=== PATIENT | female | born 1950 | race Caucasian/White ===

== ENCOUNTER → 2016-11-07 | Outpatient (CLI) | payer BC ==
[~2016-11-07] MED LIST: BENA1TAB12 PO; BENA1TAB3 PO; CA C1TAB75 PO; NF-ESOM40C PO; [UNRECOGNIZED DRUG - CODE] PO; [UNRECOGNIZED DRUG - OTHER]
--- NOTE | 2016-11-07 09:30 | Diagnostic Imaging Report ---
Bilateral screening mammogram The current study was also evaluated with a Computer Aided Detection (CAD) system. Indication: Screening. No current complaints stated on the questionnaire. COMPARISON: 11/03/15 FINDINGS: The breasts are composed of heterogeneously dense parenchyma which may decrease mammographic sensitivity. Bilateral scattered benign-appearing calcifications are seen similar to prior studies. No developing mass or new suspicious cluster of calcification noted. Allowing for technique and positional differences, no suspicious change is seen. IMPRESSION: Dense breasts with no definite change. ACR BI-RADS Category 2: Benign findings. Result letter will be mailed to the patient. Note: At least 10% of breast cancer is not imaged by mammography. Dictated by: Dictated on workstation # [id number]
== END ==
LOC: RAD 07:18
PROVIDERS: ATTEND Registered Nurse
DX: Z12.31 Encounter for screening mammogram for malignant neoplasm of breast (principal)
CPT/HCPCS: 77067

== ENCOUNTER → 2018-12-05 | Outpatient (CLI) | payer MEDICARE, OTHER ==
--- NOTE | 2018-12-05 13:42 | Diagnostic Imaging Report ---
Indication: Routine screening. Comparison is made to prior mammogram from 11/12/2017 and 11/07/2016. 2-D and 3-D bilateral screening mammography was performed with CAD. Both breasts are heterogeneously dense, limiting the sensitivity of mammography. Numerous microcalcifications throughout both breasts are again noted and appear similar to prior. Benign nodule inferior right breast appears stable. No new mass is detected. Axillae are unremarkable. Impression: BI-RADS category 2 No mammographic features suspicious for malignancy are identified. ACR BI-RADS Category 2: Benign findings. Result letter will be mailed to the patient. Note: At least 10% of breast cancer is not imaged by mammography. Dictated by: Dictated on workstation # [id number]
== END ==
LOC: RAD 07:19
DX: Z12.31 Encounter for screening mammogram for malignant neoplasm of breast (principal)
CPT/HCPCS: 77067

== ENCOUNTER → 2019-12-09 | Outpatient (CLI) | payer MEDICARE, OTHER ==
--- NOTE | 2019-12-09 12:46 | Diagnostic Imaging Report ---
INDICATION: Routine screening. COMPARISON: 12/05/2018 and 11/12/2017. TECHNIQUE: 2D and 3D bilateral screening mammography was performed with CAD. FINDINGS: Both breasts are heterogeneously dense, limiting the sensitivity of mammography. Innumerable microcalcifications are again noted throughout both breasts, limiting evaluation. The circumscribed nodule in the lower right breast is stable. The axillae are unremarkable. IMPRESSION: No mammographic features suspicious for malignancy are identified. ACR BI-RADS Category 2: Benign findings. Result letter will be mailed to the patient. Note: At least 10% of breast cancer is not imaged by mammography. Dictated by: Dictated on workstation # [id number]
== END ==
LOC: RAD 08:32
PROVIDERS: ATTEND Nurse Practitioner
DX: Z12.31 Encounter for screening mammogram for malignant neoplasm of breast (principal)
CPT/HCPCS: 77063; 77067

== ENCOUNTER → 2020-12-09 | Outpatient (CLI) | payer MEDICARE, OTHER ==
--- NOTE | 2020-12-09 14:10 | Diagnostic Imaging Report ---
INDICATION: 2-D and 3-D digital screening with CAD. Compared with exam 11/2019, 11/2018 and 10/2017 FINDINGS: Scattered benign type calcifications are unchanged. There is a heterogeneously dense parenchymal pattern which can limit mammographic sensitivity. No appreciable mass, architectural distortion or spiculated lesion. Skin, nipples and axillae within normal limits. IMPRESSION: Stable benign findings BI-RADS Category 2 ACR BI-RADS Category 2: Benign findings. Result letter will be mailed to the patient. Note: At least 10% of breast cancer is not imaged by mammography. Dictated by: Dictated on workstation # [id number]
== END ==
LOC: RAD 07:45
PROVIDERS: ATTEND Family Medicine
DX: Z12.31 Encounter for screening mammogram for malignant neoplasm of breast (principal)
CPT/HCPCS: 77063; 77067

== ENCOUNTER → 2021-12-12 | Outpatient (CLI) | payer MEDICARE, OTHER ==
--- NOTE | 2021-12-13 10:13 | Diagnostic Imaging Report ---
Indication: Bilateral digital 3-D screening with CAD. CAD is utilized. The current study was also evaluated with a Computer Aided Detection (CAD) system. COMPARISON: 11/2020, 11/2019 and 11/2018 FINDINGS: Density 3. Scattered benign calcifications bilaterally unchanged. No breast mass, spiculated lesion, architectural distortion or suspicious calcifications. There are no findings to suggest malignancy. There has been no change in the appearance of the breasts. IMPRESSION: BI-RADS Category 2 ACR BI-RADS Category 2: Benign findings. Result letter will be mailed to the patient. Note: At least 10% of breast cancer is not imaged by mammography. Dictated by: Dictated on workstation # [id number]
== END ==
LOC: RAD 10:29
PROVIDERS: ATTEND Nurse Practitioner
DX: Z12.31 Encounter for screening mammogram for malignant neoplasm of breast (principal)
CPT/HCPCS: 77063; 77067

== ENCOUNTER 2022-04-18 05:44 | Outpatient (CLI) | payer MEDICARE, OTHER ==
[~2022-04-18] VITALS: Ht 167.7 cm; Wt 84.1 kg
[2022-04-18] MEDS ORDERED: BENA40TA84 PO (12:17)
[2022-04-18] MEDS ORDERED: ATOR20TA66 PO (12:17)
[2022-04-18] MEDS ORDERED: MV-M1TAB20 PO (12:17)
[2022-04-18] MEDS ORDERED: CARV12.53 PO (12:17)
== END 2022-04-18 12:25 | disposition home or self-care (01) ==
LOC: PREOP 05:44
PROVIDERS: ATTEND Specialist
DX: Z01.818 Encounter for other preprocedural examination (principal)

== ENCOUNTER 2022-04-21 08:03 | Day surgery (SDC) | payer MEDICARE, OTHER ==
[~2022-04-21] VITALS: Ht 167.7 cm; Wt 84.1 kg
[~2022-04-21 08:03] MED LIST changes: +ATOR20TA66 PO; +BENA40TA84 PO; +CARV12.53 PO; +MV-M1TAB20 PO
[2022-04-21 08:15] VITALS: BP 172/81
[2022-04-21] MEDS ORDERED: MOXIFLOXACIN OPHTH SOLN 5 MG/ML 0.3 ML SYRINGE OP ONE (08:30)
[2022-04-21] MEDS ORDERED: POVIDONE (BETADINE) OPHTH SOLN 5% 30 ML OP ONE (08:30)
[2022-04-21] MEDS ORDERED: TIMOLOL 0.5% (CATARACTS) 0.3 ML BTL OU PRN (08:30)
[2022-04-21] MEDS: TETRACAINE 0.5% OPHTH SOLN 4 ML BTL (SINGLE DOSE ONLY) OU PRN ×4 (08:35→08:45)
[2022-04-21] MEDS: TROPICAMIDE 1% OPH SOLN (MYDRIACYL) 15 ML BTL OP SCH ×3 (08:39→08:46)
[2022-04-21] MEDS: PHENYLEPHRINE 10% OPHTH (NEO-SYN) 5 ML BTL OU SCH ×3 (08:40→08:46)
[2022-04-21] MEDS ORDERED: MIDAZOLAM 2 MG/2 ML (VERSED) VIAL ONE (08:46)
--- NOTE | 2022-04-21 08:54 | Ophthalmologist Pre-Op Note ---
Pre-Operative Progress Note H&P Reviewed The H&P was reviewed, patient examined and no changes noted. Date H&P Reviewed: Apr 21, 2022 Time H&P Reviewed: 08:54 Pre-Op Dx Cataract, Right Eye DINA CALI MD Apr 21, 2022 08:54
--- NOTE | 2022-04-21 09:15 | Ophthalmology Operative Report ---
Cataract removal/placement IOL PREOPERATIVE DIAGNOSIS: Cataract Right Eye POSTOPERATIVE DIAGNOSIS: Cataract Right Eye PROCEDURE: Cataract removal and placement of posterior chamber implant, right eye SURGEON: Jose Cali ANESTHESIA: Topical with sedation COMPLICATIONS: None ESTIMATED BLOOD LOSS: Minimal DESCRIPTION OF PROCEDURE: After proper informed consent was obtained, the patient, a 72 female, was taken to the Operating Room and the right eye was anesthetized with tetracaine. The right eye was then prepped and draped in the usual manner. A wire lid speculum was placed. A paracentesis was made at the left hand position. Preservative free lidocaine was injected into the anterior chamber followed by viscoelastic. A clear corneal incision was made in the temporal position. A capsulorrhexis was preformed and the central nuclear and cortical material were removed. The posterior capsule was polished and Jaycob 19.5 AU00T0 IOL was placed into the capsular bag. The residual viscoelastic was aspirated and balanced saline solution was injected into the anterior chamber. Moxifloxacin was injected into the anterior chamber. The wound was checked and found to be water tight. The patient tolerated the procedure well without complications. JOSE CALI MD Apr 21, 2022 09:15
[2022-04-21 09:20] VITALS: BP 135/76
[2022-04-21] MEDS ORDERED: acetaZOLAMIDE ER 500 MG CAP (DIAMOX SEQUELS) PO ONE (12:00)
--- NOTE | 2022-04-21 12:51 | Anesthesia-General Post-Op ---
MAC Patient Condition Mental Status/LOC: Same as Preop Cardiovascular: Satisfactory Nausea/Vomiting: Absent Respiratory: Satisfactory Pain: Controlled Complications: Absent Post Op Complications Complications None Follow Up Care/Instructions Patient Instructions None needed. Anesthesiology Discharge Order Discharge Order Patient is doing well, no complaints, stable vital signs, no apparent adverse anesthesia problems. No complications reported per nursing. FELICITY NAM CRNA Apr 21, 2022 12:50
== END 2022-04-21 09:22 ==
LOC: SDC 08:03
PROVIDERS: ATTEND Specialist
DX: H25.11 Age-related nuclear cataract, right eye (principal); Z87.891 Personal history of nicotine dependence
CPT/HCPCS: 66984; V2632

== ENCOUNTER 2022-04-27 06:20 | Outpatient (CLI) | payer MEDICARE, OTHER | END 2022-05-02 08:13 | disposition home or self-care (01) | LOC: PREOP 06:20 | PROVIDERS: ATTEND Specialist | DX: Z01.818 Encounter for other preprocedural examination (principal); H25.12 Age-related nuclear cataract, left eye ==

== ENCOUNTER → 2022-05-05 | Day surgery (SDC) | payer MEDICARE, OTHER ==
[~2022-05-05] VITALS: Ht 167 cm; Wt 84.1 kg
[~2022-05-05] MED LIST changes: +MIDAZOLAM 2 MG/2 ML (VERSED) VIAL ONE; +MOXIFLOXACIN OPHTH SOLN 5 MG/ML 0.3 ML SYRINGE OP ONE; +POVIDONE (BETADINE) OPHTH SOLN 5% 30 ML OP ONE; +TIMOLOL 0.5% (CATARACTS) 0.3 ML BTL OU PRN; +acetaZOLAMIDE ER 500 MG CAP (DIAMOX SEQUELS) PO ONE
[2022-05-05 08:40] VITALS: BP 156/83
[2022-05-05] MEDS: TETRACAINE 0.5% OPHTH SOLN 4 ML BTL (SINGLE DOSE ONLY) OU PRN ×4 (08:52→09:03)
[2022-05-05] MEDS: PHENYLEPHRINE 10% OPHTH (NEO-SYN) 5 ML BTL OU SCH ×3 (08:57→09:06)
[2022-05-05] MEDS: TROPICAMIDE 1% OPH SOLN (MYDRIACYL) 15 ML BTL OP SCH ×3 (09:00→09:06)
--- NOTE | 2022-05-05 09:22 | Ophthalmologist Pre-Op Note ---
Pre-Operative Progress Note H&P Reviewed The H&P was reviewed, patient examined and no changes noted. Date H&P Reviewed: May 05, 2022 Time H&P Reviewed: 09:22 Pre-Op Dx Cataract, Left Eye DINA CALI MD May 05, 2022 09:22
--- NOTE | 2022-05-05 09:41 | Ophthalmology Operative Report ---
Cataract removal/placement IOL PREOPERATIVE DIAGNOSIS: Cataract Left Eye POSTOPERATIVE DIAGNOSIS: Cataract Left Eye PROCEDURE: Cataract removal and placement of posterior chamber implant, left eye SURGEON: Jose Cali ANESTHESIA: Topical with sedation COMPLICATIONS: None ESTIMATED BLOOD LOSS: Minimal DESCRIPTION OF PROCEDURE: After proper informed consent was obtained, the patient, a 72 female, was taken to the Operating Room and the left eye was anesthetized with tetracaine. The left eye was then prepped and draped in the usual manner. A wire lid speculum was placed. A paracentesis was made at the left hand position. Preservative free lidocaine was injected into the anterior chamber followed by viscoelastic. A clear corneal incision was made in the temporal position. A capsulorrhexis was preformed and the central nuclear and cortical material were removed. The posterior capsule was polished and an Jaycob 20.0 AU00T0 was placed into the capsular bag. The residual viscoelastic was aspirated and balanced saline solution was injected into the anterior chamber. Moxifloxacin was injected into the anterior chamber. The wound was checked and found to be water tight. The patient tolerated the procedure well without complications. JOSE CALI MD May 05, 2022 09:41
[2022-05-05 09:47] VITALS: BP 138/70
--- NOTE | 2022-05-05 13:51 | Anesthesia-General Post-Op ---
MAC Patient Condition Mental Status/LOC: Same as Preop Cardiovascular: Satisfactory Nausea/Vomiting: Absent Respiratory: Satisfactory Pain: Controlled Complications: Absent Post Op Complications Complications None Follow Up Care/Instructions Patient Instructions None needed. Anesthesiology Discharge Order Discharge Order Patient is doing well, no complaints, stable vital signs, no apparent adverse anesthesia problems. No complications reported per nursing. DORA BLUE CRNA May 05, 2022 13:51
== END | disposition home or self-care (01) ==
LOC: SDC 08:44
PROVIDERS: ATTEND Specialist
DX: H25.9 Unspecified age-related cataract (principal); Z87.891 Personal history of nicotine dependence
CPT/HCPCS: 66984; V2632